=== PATIENT | male | born 1945 | race Asian ===

== ENCOUNTER 2022-10-20 18:10 | Emergency (ER) | payer MEDICARE, MEDICAID, SELFPAY ==
[2022-10-20] VITALS (12 sets, daily range): BP systolic 106–140; BP diastolic 44–64; PULSE 66–73; RESP 13–24; TEMP 36.6; O2SAT 95–98
--- NOTE | ~2022-10-20 | CT_ITS ---
EXAMINATION: CT cervical spine wo con DATE: 10/20/2022 19:23 INDICATION: Fall from 15 feet TECHNIQUE: Computed tomography (CT) of the cervical spine was performed without intravenous contrast. Automated exposure control and iterative reconstruction technique were employed. The dose-length pro duct was 243.92 mGy-cm. COMPARISON: None FINDINGS: Straightening of the normal cervical lordosis likely positional given the presence of a cervical anderson ar. 2 mm anterolisthesis C7 on T1. Vertebral body heights are normal. No acute fracture. Moderate to severe disc height loss at C3-C4, C5-C6 and C6-C7. Moderate disc height loss at C4-C5 and mild disc h eight loss at C2-C3, C7-T1 and T1-T2. Anterior and posterior endplate osteophytes throughout the cerv ical spine with prominent ossification along the posterior longitudinal ligament from C3 through C7. Mild pulmonary edema at the apices of lungs. Cervical soft tissues are unremarkable. The following di sc levels are specifically discussed: C2-C3: Disc is mildly bulging and there is small amount of ossification at the posterior longitudinal ligament at C3. There is mild bilateral uncovertebral joint osteoarthritis. There is mild right and severe left facet joint osteoarthritis. There is mild right and severe left neural foraminal stenosis . There is mild central canal stenosis. C3-C4: Prominent ossification of the posterior longitudinal ligament which results in moderate centra l canal stenosis. There is severe bilateral uncovertebral joint osteoarthritis. There is mild to mode rate right and severe left facet joint osteoarthritis. There is moderate right and moderate to severe left neural foraminal stenosis. C4-C5: Prominent ossification along the posterior longitudinal ligament. There is old right and moder ate left uncovertebral joint osteoarthritis. There is moderate right and severe left facet joint oste oarthritis. There is mild right and moderate to severe left neural foraminal stenosis. There is mild central canal stenosis. C5-C6: Prominent ossification along the posterior longitudinal ligament. There is severe bilateral un covertebral joint osteoarthritis. There is mild bilateral facet joint osteoarthritis. There is mild r ight and mild to moderate left neural foraminal stenosis. There is mild central canal stenosis. C6-C7: Dominant ossification along the posterior longitudinal ligament. There is moderate right and s evere left uncovertebral joint osteoarthritis. There is mild bilateral facet joint osteoarthritis. Th ere is mild right and moderate left neural foraminal stenosis. There is mild to moderate left-sided p redominant central canal stenosis. C7-T1: Disc is mildly bulging. There is no uncovertebral joint osteoarthritis. There is severe bilate ral facet joint osteoarthritis. There is mild bilateral, right greater than left neural foraminal uma nosis. There is no central canal stenosis. IMPRESSION: 1. Moderate to severe cervical spondylosis with prominent ossification along the posterior longitudin al ligament resulting in up to moderate central canal stenosis at C3-C4. No acute osseous abnormality . Reviewed, dictated and finalized at location A. IMPRESSION: 1. Moderate to severe cervical spondylosis with prominent ossification along th e posterior longitudinal ligament resulting in up to moderate central canal uma nosis at C3-C4. No acute osseous abnormality.
--- NOTE | ~2022-10-20 | CT_ITS ---
EXAMINATION: CT chest abdomen pelvis w con DATE: 10/20/2022 19:23 INDICATION: Fall from 15 feet TECHNIQUE: Computed tomography (CT) of the chest, abdomen, and pelvis was performed with 100 mL Omnip aque-350 intravenous contrast. Automated exposure control and iterative reconstruction technique were employed. The dose-length product was 824.83 mGy-cm. COMPARISON: None FINDINGS: CHEST CT: Small region of scarring with bronchiectasis in the anterior right upper lobe. There are dependent gr oundglass opacities with some smooth septal line thickening in the bilateral lower lobes consistent w ith mild pulmonary edema. 1.7 x 1.5 cm thick irregular thick-walled cavitary lesion in the anterior l eft upper lobe which could be either malignant or infectious in etiology. No pleural effusion or pneu mothorax. 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 No pericardial effusion. Thoracic aorta is normal in caliber with no dissection or acute traumatic aortic injury. No pathologically enlarged thoracic lym phadenopathy. Chronic T12 compression fracture with 20% anterior vertebral body height loss. No acute fractures. ABDOMEN/PELVIS CT: Liver, gallbladder, spleen, pancreas, bilateral adrenal glands are normal. There are bilateral renal cysts the largest on the right measuring 2.7 cm . There are few scattered colonic diverticula without adjacent inflammatory stranding to suggest diverticulitis. Small bowel and appendix are normal. Ther e are several peripherally corticated heterotopic ossicles in the anterior pelvis likely sequela of c hronic fat necrosis. Bladder is normal. There is calcified atherosclerosis of the aorta and many of t he other arteries. No free intraperitoneal gas or fluid. No pathologically enlarged abdominal or pelv ic lymphadenopathy. Additional chronic mild compression fractures at L1, L3 and L4 and Schmorl's nod e at the superior endplate of L5. Mild to moderate lumbar spondylosis. No acute osseous abnormality. IMPRESSION: 1. No fracture or acute vascular or visceral organ injury in the chest, abdomen or pelvis. 2. 1.7 x 1.5 cm irregular thick-walled cavitary mass in the anterior left upper lobe could be either malignant or infectious in etiology. Consider CT-guided percutaneous biopsy. 3. Likely congestive heart failure with cardiomegaly and mild pulmonary edema in the dependent lower lungs. Reviewed, dictated and finalized at location A. IMPRESSION: 1. No fracture or acute vascular or visceral organ injury in the chest, abdomen or pelvis. 2. 1.7 x 1.5 cm irregular thick-walled cavitary mass in the anterior left upper lobe could be either malignant or infectious in etiology. Consider CT-guided p ercutaneous biopsy. 3. Likely congestive heart failure with cardiomegaly and mild pulmonary edema i n the dependent lower lungs.
--- NOTE | ~2022-10-20 | CT_ITS ---
EXAMINATION: CT brain wo con DATE: 10/20/2022 19:23 INDICATION: Fall from 15 feet TECHNIQUE: Computed tomography (CT) of the head was performed without intravenous contrast. Sagittal and coronal reconstructions were performed. The mA was adjusted according to patient size. Iterative reconstruction technique was employed. The dose-length product was 605.33 mGy-cm. COMPARISON: None FINDINGS: No fracture. No acute intracranial hemorrhage, acute infarction or abnormal extra axial fluid collect ion. There is mild scattered white matter hypoattenuation consistent with chronic small vessel ischem ic disease. Symmetric prominence of the sulci consistent with mild age-appropriate diffuse cerebral v olume loss. Ventricles are normal and symmetric. No mass/mass effect. Near complete opacification of the right maxillary sinus with mild thickening and sclerosis of the sinus [place] consistent with chron ic sinusitis. Additional mild mucosal thickening the bilateral ethmoid sinuses. Changes of bilateral intraocular lens replacement. The orbits and mastoid air cells are normal. Intracranial calcified cer ebral atherosclerosis is noted. IMPRESSION: 1. Normal aging brain. No fracture or acute intracranial process. 2. Chronic right maxillary sinusitis. Reviewed, dictated and finalized at location A.
--- NOTE | ~2022-10-20 | XR_ITS ---
EXAMINATION: XR forearm RT 2V, XR hand RT min 3V DATE: 10/20/2022 19:29 INDICATION: Fall from 15 feet TECHNIQUE: 1. AP an lateral views of the right forearm were obtained. 2. PA, oblique and lateral views of the right hand were obtained. COMPARISON: none FINDINGS: Peripheral IV at the right antecubital fossa. 2 mm ulnar positive variance. Bone alignment is otherwi se normal. No fracture. 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 Mild soft tissue swelling at the volar and radial aspect of the distal forearm. No elbow joint effusion. IMPRESSION: 1. No acute osseous abnormality. 2. 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 Reviewed, dictated and finalized at location A. IMPRESSION: 1. No acute osseous abnormality. 2. 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
--- NOTE | ~2022-10-20 | XR_ITS ---
EXAMINATION: XR chest 1V portable DATE: 10/20/2022 18:57 INDICATION: Fall from 15 feet TECHNIQUE: frontal view of the chest was obtained. COMPARISON: None FINDINGS: The lungs are clear with no focal airspace opacities, pulmonary edema, pleural effusion or pneumothor ax. The cardiomediastinal silhouette is normal. Median sternotomy wires and mediastinal surgical clip s are seen, likely from prior coronary artery bypass grafting. Mild to moderate lower thoracic and up per lumbar spondylosis. IMPRESSION: 1. No acute cardiopulmonary disease. Reviewed, dictated and finalized at location A.
--- NOTE | 2022-10-20 18:23 | ECG_ITS ---
Measurements Intervals [place] Rate: 64 P: 55 MA: 152 QRS: 57 QRSD: 90 T: 42 QT: 421 QTc: 437 Interpretive Statements SINUS RHYTHM POSSIBLE LEFT ATRIAL ENLARGEMENT [-0.1mV P WAVE IN V1/V2] POSSIBLE LEFT VENTRICULAR HYPERTROPHY [VOLTAGE CRITERIA PLUS LAE OR QRS WIDENING] NONSPECIFIC T-WAVE ABNORMALITY NO PREVIOUS ECG AVAILABLE FOR COMPARISON Electronically Signed On 10-21-2022 13:37:56 CDT by Itzel Hector M.D.
[2022-10-20 18:40] LABS: Basophils Percent Auto 0.4 % (0.2-1.2); Eosinophils Absolute Auto 0.4 K/mm3 (0-0.3); Hematocrit 41.8 % (42.0-52.0); Hemoglobin 14.2 g/dL (14.0-18.0); Immature Granulocyte Absolute 0.04 K/mm3 (0.00-0.031); Immature Granulocyte Percent A 0.4 % (0-0.5); Lymphocytes Absolute Auto 2.56 K/mm3 (0.9-3.2); Lymphocytes Percent Auto 28.1 % (18.3-44.2); Mean Corpuscular Hemoglobin 31.8 pg (26-34); Mean Corpuscular Volume 93.5 fl (80-100); Mean Platelet Volume 10.6 fl (7.4-10.4); Monocytes Absolute Auto 0.8 K/mm3 (0.1-0.6); Monocytes Percent Auto 8.3 % (2.6-8.5); Neutrophils Absolute Auto 5.4 K/mm3 (1.3-6.7); Neutrophils Percent Auto 58.8 % (45.5-73.1); Platelet Count Result 203 k/mm3 (150-375); Red Blood Count 4.47 M/mm3 (4.6-6.20); White Blood Count 9.1 K/mm3 (4.5-10.0)
[2022-10-20] MEDS: SODIUM CHLORIDE 0.9% IV 1,000 ML 999 ML IV CONT (18:47)
[2022-10-20 18:49] LABS: Glucose Point of Care 111 mg/dl (65-105)
[2022-10-20 18:52] LABS: INR 0.9; Partial Thromboplastin Time 25.3 SECONDS (22.3-36.8); Prothrombin Time 12.6 Seconds (11.1-14.7)
[2022-10-20 18:55] LABS: Alanine Aminotransferase 37 U/L (6-50); Albumin Level 5.1 g/dL (3.5-5.1); Alkaline Phosphatase 54 U/L (38-126); Anion Gap 10 mmol/L (8-16); Aspartate Amino Transferase 57 U/L (17-59); Bilirubin,Total 0.7 mg/dL (0.2-1.3); Blood Urea Nitrogen 24 mg/dL (9-20); Calcium 9.7 mg/dL (8.4-10.2); Carbon Dioxide 28 mmol/L (22-30); Chloride 100 mmol/L (98-107); Estimated CRCL calculation 37 ml/min; Estimated Glomerular Filt Rate 54; Glucose 91 mg/dL (65-110); Sodium 138 mmol/L (137-145)
--- NOTE | 2022-10-20 18:56 | ED.HEATRA ---
HPI - Head Injury General Chief complaint: Head Injury Stated complaint: fall Time Seen by Provider: 10/20/22 18:20 Source: patient, family and RN notes reviewed Mode of arrival: ambulatory Limitations: language barrier History of Present Illness HPI Narrative: This is a 77 year old male who presents via POV for evaluation of head injury. He has come to ER with his son in law who states patient was cutting a limp of tree when he fell 15 feet to the ground. Patient fell onto his back. Patient had LOC and he was found snoring. Patient was able to ambulate into ER. Nursing staff spoke to patient's daughter over the phone and he takes aspirin and plavix. PAtient denies any pain. He denies sob, back pain or neck pain. Nursing staff placed patient in c collar. Related Data Home Medications Medication Instructions Recorded Confirmed amlodipine 10 mg tablet mg 10/20/22 amlodipine 5 mg tablet mg 10/20/22 aspirin 81 mg tablet,delayed mg 10/20/22 release clobetasol 0.05 % topical ointment topical 10/20/22 clopidogrel 75 mg tablet (Plavix) 75 mg PO DAILY 10/20/22 10/20/22 hydrochlorothiazide 25 mg tablet mg 10/20/22 losartan 50 mg tablet mg 10/20/22 simvastatin 40 mg tablet mg 10/20/22 tamsulosin 0.4 mg capsule mg PO 10/20/22 Allergies Allergy/AdvReac Type Severity Reaction Status Date / Time No Known Allergies Allergy Verified 10/20/22 18:27 Exam Const: General: healthy appearing, no acute distress and alert Nutritional Appearance: well nourished Orientation/consciousness: patient oriented x3 HENMT: Head: normal to inspection Ears: external ears normal Face/Nose/Sinus: Normal external nose present Face and sinus: normal facial exam Mouth: Yes Normal oral and palatal mucosa present, Yes lip normal and Yes moist mucous membranes Teeth and gingiva: dentition normal Throat: posterior oropharynx normal and uvula midline Eyes: Conjunctivae: conjunctivae normal Pupils: Equal, round and reactive pupils present Neck: Other: in c collar Chest: Chest palpation & inspection: normal inspection of the chest Other: no crepitus Resp: Effort & Inspection: normal respiratory effort Auscultation: clear to auscultation bilaterally Cardio: Rate: regular rate Rhythm: regular rhythm Heart sounds: no murmurs GI: GI Palp: Yes Soft to palpation and No Tenderness to palpation present (GI) Auscultation: normal bowel sounds Back/Spine/Pelvis: Cervical Spine: collar present Skin: Other: abrasion and bruising to right hand and forearm, no deformity Neuro: General: patient oriented x3 and moves all extremities Cranial nerves: Yes CN's II-XII intact bilaterally Speech: normal speech Gait exam (Neuro): Normal gait present Extrem: General: no clubbing, cyanosis or edema Other: abrasion to right hand and forearm Psych: Mental Status: mental status grossly normal Affect: normal affect Attitude: cooperative Course Reevaluation(s) Reevaluation #1: Patient able to ambulate in ER . He denies headache, dizziness, nausea or any pain. After discussion with daughter, it does not seem that patient fell from as high up as thought. Patient will stay with daughter. They were given return precautions. I have discussed CT findings of lung lesion that will need evaluation. Patient does not have shortness of breath or chest pain. Date: 10/20/22 Time: 20:49 Vital Signs Vital signs: Vital Signs Pulse Rate 66 10/20/22 18:18 Respiratory Rate 15 10/20/22 18:18 Blood Pressure 140/64 10/20/22 18:18 Pulse Oximetry 98 10/20/22 18:18 Oxygen Delivery Room Air 10/20/22 18:18 Temperature 97.8 F 10/20/22 19:42 Pulse Rate 66 10/20/22 21:15 Respiratory Rate 13 10/20/22 21:15 Blood Pressure 106/44 L 10/20/22 21:02 Pulse Oximetry 98 10/20/22 21:02 Oxygen Delivery Room Air 10/20/22 18:18 MDM - Head Injury Differential Diagnosis Differential diagnosis: Likely epidura
== END 2022-10-20 21:25 | disposition home or self-care (01) ==
PROVIDERS: Emergency Provider General Practice; PCP Family Medicine
DX: S06.9X9A Unspecified intracranial injury with loss of consciousness of unspecified duration, initial encounter (principal); R91.1 Solitary pulmonary nodule; Z79.02 Long term (current) use of antithrombotics/antiplatelets; Z79.82 Long term (current) use of aspirin; M19.041 Primary osteoarthritis, right hand; M19.031 Primary osteoarthritis, right wrist; M19.021 Primary osteoarthritis, right elbow; J32.0 Chronic maxillary sinusitis; M47.812 Spondylosis without myelopathy or radiculopathy, cervical region; R94.31 Abnormal electrocardiogram [ECG] [EKG]; R91.8 Other nonspecific abnormal finding of lung field; W14.XXXA Fall from tree, initial encounter
CPT/HCPCS: 36415; 70450; 71045; 71260; 72125; 73090; 73130; 74177; 80053; 82948; 85025; 85610; 85730; 93005; 96360; 99284; J7030; Q9967